=== PATIENT | male | born 1995 | race Caucasian/White ===

== ENCOUNTER 2017-07-17 20:32 | Emergency (ER) | payer MEDICAID ==
[2017-07-18 02:04] VITALS: BP 121/71
[2017-07-18] MEDS ORDERED: PSEUDOEPHEDRINE HCL 30 MG TABLET PO ONE (02:13)
[2017-07-18] MEDS ORDERED: LORATADINE 10 MG TABLET PO ONE (02:13)
--- NOTE | 2017-07-18 02:13 | ER Document Report ---
HPI - HPI Patient complains to provider of: sore throat Onset: Other - thursday Onset/Duration: Persistent Quality of pain: Other - sore/scratchy Severity: Mild Pain Level: 1 Associated Symptoms: Allergy/hay fever, Nonproductive cough, Rhinnorhea, Sinus pain/drainage Exacerbated by: Denies Relieved by: Denies Similar symptoms previously: No Recently seen / treated by doctor: No - REPRODUCTIVE Reproductive: DENIES: : - DERM Skin Color: Normal Past Medical History - Social History Smoking Status: Current Every Day Smoker Chew tobacco use (# tins/day): No Frequency of alcohol use: None Drug Abuse: None Family History: Reviewed & Not Pertinent Patient has suicidal ideation: No Patient has homicidal ideation: No Renal/ Medical History: Denies: Hx Peritoneal Dialysis Surgical Hx: Negative - Immunizations Immunizations up to date: Yes Hx Diphtheria, Pertussis, Tetanus Vaccination: Yes Vertical Provider Document - CONSTITUTIONAL Agree With Documented VS: Yes Notes: PHYSICAL EXAM GENERAL: Alert, interacts well. HEAD: Normocephalic, atraumatic. EYES: Pupils equal, round, and reactive to light. Extraocular movements intact. ENT: Oral mucosa moist, tongue midline. Uvula midline. Airway patent. No evidence of tonsillar enlargement, peritonsillar abscess, retropharyngeal abscess. NECK: Full range of motion. Supple. Trachea midline. LUNGS: Clear to auscultation bilaterally, no wheezes, rales, or rhonchi. No respiratory distress. HEART: Regular rate and rhythm. No murmurs, gallops, or rubs. EXTREMITIES: Moves all 4 extremities spontaneously. No edema, radial and dorsalis pedis pulses 2/4 bilaterally. No cyanosis. NEUROLOGICAL: Alert and oriented x4. Normal speech. PSYCH: Normal affect, normal mood. SKIN: Warm, dry, normal turgor. No rashes or lesions noted. - INFECTION CONTROL TRAVEL OUTSIDE OF THE [place] IN LAST 30 DAYS: No - RESPIRATORY O2 Sat by Pulse Oximetry: 97 Course - Re-evaluation Re-evalutation: 07/18/17 02:00 Patient is a 21-year-old male is hemodynamic stable, no acute distress afebrile. No evidence of peritonsillar, retropharyngeal abscess. Rapid strep is negative. No respiratory distress. Patient tolerating p.o. without any difficulty. Presentation today is consistent with rhinitis. Patient educated on medications to buy [id number] to help with the symptoms. Otherwise stable for discharge - Vital Signs Vital signs: Temp Pulse Resp BP Pulse Ox 97.8 F 68 18 121/71 97 07/18/17 02:04 07/18/17 02:04 07/18/17 02:04 07/18/17 02:04 07/18/17 02:04 Discharge - Discharge Clinical Impression: Rhinitis Qualifiers: Rhinitis type: allergic Chronicity: acute Allergic rhinitis trigger: unspecified Allergic rhinitis seasonality: unspecified seasonality Qualified Code(s): J30.9 - Allergic rhinitis, unspecified Condition: Good Disposition: HOME, SELF-CARE Instructions: Hay Fever ([facility]), OTC Antihistamines ([facility]) Forms: Return to Work Referrals: CHAD TEJEDA DO [Primary Care Provider] - Follow up as needed
== END 2017-07-18 02:18 | disposition home or self-care (01) ==
LOC: ER 20:32
DX: J30.9 Allergic rhinitis, unspecified (principal); J02.9 Acute pharyngitis, unspecified; R05 Cough; F17.200 Nicotine dependence, unspecified, uncomplicated
CPT/HCPCS: 87070; 87880; 99283

== ENCOUNTER 2020-04-04 12:47 | Emergency (ER) | payer OTHER ==
[2020-04-04 12:58] VITALS: BP 131/69
[2020-04-04] MEDS ORDERED: DIPH/PERTUSS(ACELL)/TETANUS VAC/PF 0.5 ML SYR (>=10YO) IM ONE (13:06)
--- NOTE | 2020-04-04 13:07 | ER Document Report ---
HPI - HPI Time Seen by Provider: 04/04/20 13:02 Pain Level: 2 Context: Patient is a 24-year-old male who presents emergency department with multiple puncture wounds to his left foot. 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 He went to go clear out the area that had a rat trap in it and he saw a rat and he went to stomp on it and ended up stomping on the spike from the rat trap. Patient was able to have coworkers take spikes out of his foot. Patient states that this happened this morning. He is unsure as to whether or not he is up-to-date on his tetanus immunization. Denies any past medical history. - REPRODUCTIVE Reproductive: DENIES: : Past Medical History - Social History Smoking Status: Current Every Day Smoker Family History: Reviewed & Not Pertinent Patient has homicidal ideation: No Renal/ Medical History: Denies: Hx Peritoneal Dialysis - Immunizations Immunizations up to date: Yes Hx Diphtheria, Pertussis, Tetanus Vaccination: Yes Vertical Provider Document - CONSTITUTIONAL Agree With Documented VS: Yes Exam Limitations: No Limitations General Appearance: No Apparent Distress - INFECTION CONTROL TRAVEL OUTSIDE OF THE [place] IN LAST 30 DAYS: No - HEENT HEENT: Atraumatic, Normocephalic, PERRLA - RESPIRATORY Respiratory: No Respiratory Distress - CARDIOVASCULAR Cardiovascular: Regular Rate, Regular Rhythm Pulses: Normal: Posterior tibial, Dorsalis pedis - MUSCULOSKELETAL/EXTREMETIES Musculoskeletal/Extremeties: FROM, Tender - Left foot, Edema - Left foot, Eccymosis - Left lateral foot - NEURO Level of Consciousness: Awake, Alert, Appropriate - DERM Integumentary: Warm, Dry, No Rash Notes: 3 puncture wounds noted to left plantar section of foot. Course - Re-evaluation Re-evalutation: 04/04/20 X-rays negative for any acute findings. No foreign body noted. Patient will be given crutches and placed in an Cecilio wrap and postop shoe for comfort. Educated patient on resting and elevating his foot. He is in agreement with this plan. No vascular compromise noted. Capillary refill less than 3 seconds. Follow-up precautions were given. Verbal discharge instructions were given to the patient. They verbalized understanding. They are stable for discharge. - Vital Signs Vital signs: Temp Pulse Resp BP Pulse Ox 97.4 F 92 16 131/69 H 98 04/04/20 12:55 04/04/20 12:55 04/04/20 12:55 04/04/20 12:55 04/04/20 12:55 Discharge - Discharge Clinical Impression: Puncture wound Condition: Stable Disposition: HOME, SELF-CARE Additional Instructions: Your seen today in the emergency department for puncture wound. Keep the area clean and dry. Continue ibuprofen 600 mg every 6 hours for your pain. Crutches to help you walk. Antibiotics as prescribed. Rest and elevate your foot. Follow-up with your primary care provider in regards to this visit. Prescriptions: Doxycycline Hyclate 100 mg PO BID #14 tablet.dr Forms: Return to Work Referrals: CHAD TEJEDA DO [NO LOCAL MD] - Follow up in 3-5 days
--- NOTE | 2020-04-04 13:54 | RADIOLOGY REPORT (SQ) ---
EXAM DESCRIPTION: FOOT LEFT COMPLETE IMAGES COMPLETED DATE/TIME: 04/04/2020 1:34 pm REASON FOR STUDY: puncture wounds COMPARISON: None. NUMBER OF VIEWS: Three views. TECHNIQUE: AP, lateral and oblique radiographic images acquired of the left foot. LIMITATIONS: None. FINDINGS: MINERALIZATION: Normal. BONES: No acute fracture or dislocation. No worrisome bone lesions. JOINTS: No effusions. SOFT TISSUES: No radiopaque foreign body. OTHER: No other significant finding. IMPRESSION: No radiopaque foreign body. No acute osseous finding. TECHNICAL DOCUMENTATION: JOB ID: [id number] 2010 [employer]- All Rights Reserved Reading location - IP/workstation name: [email or web address] [email or web address]
== END 2020-04-04 15:11 | disposition home or self-care (01) ==
LOC: ER 12:47
DX: S91.332A Puncture wound without foreign body, left foot, initial encounter (principal); F17.200 Nicotine dependence, unspecified, uncomplicated; W26.8XXA Contact with other sharp object(s), not elsewhere classified, initial encounter; Y99.0 Civilian activity done for income or pay; Z23 Encounter for immunization
CPT/HCPCS: 90471; 90715; 99283